=== PATIENT | male | born 1960 | race Two or more races ===

== ENCOUNTER 2024-05-18 11:15 | Observation (INO) ==
[2024-05-18] MEDS: NOZIN NASAL SANITIZER TP ONE (10:18)
[2024-05-18] MEDS: LR 1,000 ML IV 1,000 ML IV ONE (10:19)
[2024-05-18 10:51] VITALS: BMI 43.0
[2024-05-18] MEDS: FENTANYL VIAL INJ 100 mcg ONE (12:30)
[2024-05-18] MEDS: VERSED ONE (12:30)
[2024-05-18] MEDS: PRECEDEX INJ VIAL ONE (12:32)
[2024-05-18] MEDS: KETAMINE 50 MG/5 ML-NACL SYRNG ONE (12:32)
[2024-05-18] MEDS: DIPRIVAN VIAL 20 ML ONE ×2 (12:32→14:04)
[2024-05-18] MEDS: MARCAINE 0.25% INJ ONE (12:55)
[2024-05-18] MEDS: BETADINE SOLN ONE (12:55)
[2024-05-18] MEDS: ANCEF VIAL 1 GRAM ONE (13:20)
[2024-05-18] MEDS: NS 100 ML IV 100 ML ONE (13:20)
[2024-05-18] MEDS: VANCOMYCIN HCL ONE (13:32)
[2024-05-18] MEDS: TOBRAMYCIN SULFATE ONE (13:32)
[2024-05-18] MEDS: ProvayBLUE 0.5% ONE (13:43)
[2024-05-18] MEDS: NEO-SYNEPHRINE INJ ONE (13:48)
[2024-05-18] MEDS ORDERED: STERILE WATER IRRIGATION IR ONE (14:20)
[2024-05-18] MEDS: EPHEDRINE SULFATE INJ ONE (14:27)
[2024-05-18] MEDS ORDERED: ZOFRAN INJ 4 MG VIAL IVP PRN (15:07)
[2024-05-18] MEDS ORDERED: TYLENOL 325 MG TAB PO PRN (15:07)
[2024-05-18] MEDS: DILAUDID INJ IVP PRN (15:40)
[2024-05-18] MEDS: NS 1,000 ML IV 1,000 ML IV SCH (15:48)
[2024-05-18] MEDS: PERCOCET TAB 5/325 MG PO PRN (19:27)
[2024-05-18] MEDS: COLACE CAP 100 MG PO SCH (21:22)
[2024-05-19 06:55] LABS: BLOOD UREA NITROGEN 23 mg/dL (7-18); CARBON DIOXIDE 31.2 mmol/L (21-32); CHLORIDE 101 mmol/L (98-107); COR NA(FOR HYPERGLY) 138 mmol/L (136-145); CREATININE 0.85 mg/dL (0.70-1.30); GLUCOSE 134 mg/dL (65-99); POTASSIUM 5.1 mmol/L (3.5-5.1); SODIUM 137 mmol/L (136-145); eGFR NON BLACK RACES > 60 (>60)
--- NOTE | 2024-05-19 08:42 | NOTE.SOAP ---
Soap Note Note for Day of Date of Exam: 05/19/24 Subjective Data Subjective Data: Patient is doing well this am. He is POD#1. He has minimal complaints and minimal pain in the left lower extremity. Objective Data Objective Data: Left Lower Extremity Exam: External fixator in place. No bolts or wires are noted to be loose. No pin site infections. The dressing was intact. I removed the dressing to examine the wound on the plantar aspect of the foot. The wound measured approximately 3 cm in diameter with depth of 0.5 cm . No signs of infection. No purulence to the surrounding area. The antibiotics were in place. At this time I removed the antibiotic beads with a suture removal kit in a sterile fashion I then dressed the wound with 4x4s, ABD, Negrito. No signs or symptoms consistent with DVT, PE, or Compartment Syndrome. Assessment Assessment: 63 year old M POD#1 wound debridement, application of external fixator, achilles lengthening, and application of antibiotic beads Plan Plan: - PWB to the Left Lower Extremity, transfers only. - I removed the antibiotc beads in a sterile fashion and redressed him with sterile 4x4s, ABD, Negrito. - Patient should leave dressing intact till home health nursing comes. - Prescriptions in chart for wound vac changes and pain medication. - He can restart his eliquis today. - Patient okay for discharge from our perpsective once seen by Dr. Mitchell.
[2024-05-19] MEDS ORDERED: ELIQUIS PO SCH (09:15)
[2024-05-19 09:21] VITALS: TEMP 98.5; O2SAT 96
[2024-05-19] MEDS: CARDIZEM CD 240 MG 24-HR PO SCH (09:33)
[2024-05-19] MEDS: NORCO 10/325 TAB PO STA (09:33)
[2024-05-19] MEDS: LIPITOR TAB 40 MG PO SCH (09:36)
[2024-05-19] MEDS: ELIQUIS PO SCH (09:36)
[2024-05-19] MEDS: COZAAR PO SCH (09:36)
[2024-05-19 09:38] VITALS: BP 138/79; PULSE 105; RESP 20
[2024-05-19] MEDS ORDERED: CYMBALTA PO SCH (10:00)
[2024-05-19] MEDS ORDERED: NEURONTIN CAP 400 MG PO SCH (21:00)
[2024-05-20] MEDS ORDERED: CYMBALTA PO SCH (09:00)
== END 2024-05-19 12:00 | disposition home health service (06) ==
LOC: MED/SURG → EDUNIT# 16:00
PROVIDERS: ADMIT Obstetrics & Gynecology Obstetrics; ATTEND Obstetrics & Gynecology Obstetrics
PROC: APEXFIX (2024-05-18 11:30)
PROC: DEBRIDE (2024-05-18 11:30)
DX: L97.428 Non-pressure chronic ulcer of left heel and midfoot with other specified severity; M24.572 Contracture, left ankle; Z65.8 Other specified problems related to psychosocial circumstances; M14.672 Charcot's joint, left ankle and foot